=== PATIENT | male | born 1995 | race Two or more races ===

== ENCOUNTER 2024-10-13 07:16 | Emergency (ER) | payer MEDICAID, OTHER ==
[~2024-10-13] VITALS: Ht 175.3 cm; Wt 102.0 kg
--- NOTE | 2024-10-13 07:25 | ED.PDOC ---
History of Present Illness HPI Comments 29-year-old male history of bipolar schizophrenia hypotension was brought by paramedics because he is hearing voices for the past two weeks. Voices are telling him to harm himself. He has not taken his medication in the past year. He has been feeling like this for the past two weeks. Blood pressure on arrival was 154/96 with saturation of 100%. Time Seen by MD: 07:21 Reviewed Notes: Nurses Notes, Medications, Allergies Allergies: Coded Allergies: NO KNOWN ALLERGIES (Unverified , 10/13/24) Information Source: Patient, Emergency Med Personnel Mode of Arrival: EMS Severity: Moderate Timing: Days Duration: Since onset Past Medical History PAST MEDICAL HISTORY: Schizophrenia Surgical History: Denies all surgeries Social History Smoker: Cigarettes Alcohol: Denies ETOH Use Drugs: Denies Drug Use Constitutional: denies: chills, diaphoresis, fatigue, fever, malaise, sweats, weakness, others EENTM: denies: blurred vision, double vision, ear bleeding, ear discharge, ear drainage, ear pain, ear ringing, eye pain, eye redness, hearing loss, mouth pain, mouth swelling, nasal discharge, nose bleeding, nose congestion, nose pain, photophobia, tearing, throat pain, throat swelling, voice changes, others Respiratory: denies: cough, hemoptysis, orthopnea, SOB at rest, shortness of breath, SOB with excertion, stridor, wheezing, others Cardiovascular: denies: chest pain, dizzy spells, diaphoresis, Dyspnea on exertion, edema, irregular heart beat, left arm pain, lightheadedness, palpitations, PND, syncope, others Gastrointestinal: denies: abdomen distended, abdominal pain, blood streaked bowels, constipated, diarrhea, dysphagia, difficulty swallowing, hematemesis, melena, nausea, poor appetite, poor fluid intake, rectal bleeding, rectal pain, vomiting, others Genitourinary: denies: burning, dysuria, flank pain, frequency, hematuria, incontinence, penile discharge, penile sore, pain, testicle pain, testicle swelling, urgency, others Neurological: denies: dizziness, fainting, headache, left sided numbness, left sided weakness, numbness, paresthesia, pre-existing deficit, right sided numbness, right sided weakness, seizure, speech problems, tingling, tremors, weakness, others Musculoskeletal: denies: back pain, gout, joint pain, joint swelling, muscle pain, muscle stiffness, neck pain, others Integumetry: denies: bruises, change in color, change in hair/nails, dryness, laceration, lesions, lumps, rash, wounds, others Allergic/Immunocompromised: denies: Difficulty Healing, Frequent Infections, Hives, Itching, others Hematologic/Lymphatic: denies: anemia, blood clots, easy bleeding, easy bruising, swollen glands, others Endocrine: denies: excessive hunger, excessive sweating, excessive thirst, excessive urination, flushing, intolerance to cold, intolerance to heat, unexplained weight gain, unexplained weight loss, others Psychiatric: reports: bipolar disorder, schizophrenia; denies: anxiety, depression, hopeless, panic disorder, sleepless, suicidal, others Physical Exam General Appearance: Moderate Distress HEENT: Normal ENT Inspection, Pharynx Normal, TMs Normal Neck: Full Range of Motion, Non-Tender, Normal, Normal Inspection Respiratory: Chest Non-Tender, Lungs Clear, No Accessory Muscle Use, No Respiratory Distress, Normal Breath Sounds Cardiovascular: No Edema, No JVD, No Murmur, No Gallop, Normal Peripheral Pulses, Regular Rate/Rhythm Breast Exam: Deferred Gastrointestinal: No Organomegaly, Non Tender, No Pulsatile Mass, Normal Bowel Sounds, Soft Genitalia: Deferred Pelvic: Deferred Rectal: Deferred Extremities: No calf tenderness, Normal capillary refill, Normal inspection, Normal range of motion, Non-tender, No pedal edema Musculoskeletal : Apperance: Normal Neurologic: Alert, make ready worker II-XII nml as Tested, No Motor Deficits, Normal Affect, Normal Mood, No Sensory Deficits Cerebellar Function: Normal Reflexes: Normal Skin: Dry, Normal Color, Warm Peripheral Pulses: 3+ Radial (R), 3+ Radial (L) Lymphatic: No Adenopathy Was a procedure done? Was a procedure done?: No Differential Dx Considerations may include: Anxiety Electrolyte imbalance X-Ray, Labs, Meds, VS Vital Signs Date Time Temp Pulse Resp B/P (MAP) Pulse Ox O2 Delivery O2 Flow Rate FiO2 10/13/24 07:56 98.0 74 16 158/90 (112) 100 98.0 10/13/24 07:56 74 16 100 Room Air* 0 21 10/13/24 07:55 158/90 10/13/24 07:26 98.0 74 16 154/96 (115) 100 98.0 Lab Test 10/13/24 07:40 Range/Units Urine Opiates Screen Neg NEGATIVE Urine Fentanyl Screen Neg NEGATIVE Urine Barbiturates Screen Neg NEGATIVE Urine Phencyclidine Screen Neg NEGATIVE Urine Amphetamines Screen Neg NEGATIVE Urine Benzodiazepines Screen Neg NEGATIVE Urine Cocaine Screen Neg NEGATIVE Urine Cannabinoids Screen Neg NEGATIVE Current Medications Medications (Trade) Dose Ordered Sig/Maksim Route Start Time Stop Time Status Last Admin Clonidine HCl (Catapres Tablet) 0.1 mg ONCE ONCE PO 10/13/24 08:00 10/13/24 08:01 DC 10/13/24 07:55 Patient alert. Complaining of hearing voices. Voices telling him to harm himself. Vitals stable. Has not been taking his psychiatric medication for more than a year. Counseled patient on effects of smoking cigarettes for 15 minutes. Reviewed his previous visit. Blood pressure elevated. Was given clonidine. Medically cleared. Psychiatric evaluation. Time of 1ST Reevaluation: 07:23 Reevaluation 1ST: Improved Patient Education/Counseling: Diagnosis, Treatment, Prognosis, Need For Follow Up Family Education/Counseling: No Family Present Departure 1 Departure Time of Disposition: 07:24 Impression: Primary Impression: Suicidal ideation Additional Impression: Hypertension Qualified Codes: I10 - Essential (primary) hypertension Disposition: 30 STILL A PATIENT Condition: Good Critical Care Note Critical Care Time?: No Stability Stability form required: No Heart Score Heart Score: Heart Score Response (Comments) Value History N/A 0 EKG N/A 0 Age N/A 0 Risk Factors N/A 0 Troponin N/A 0 Total 0 GILBERT PERAZA MD October 13, 2024 07:25
[2024-10-13] MEDS ORDERED: cloNIDine HCL 0.1 MG TAB PO ONE (07:30)
[2024-10-13] MEDS: cloNIDine HCL 0.1 MG TAB PO ONE (07:55)
[2024-10-13 07:56] VITALS: PULSE 74; RESP 16; O2SAT 100
[2024-10-13 08:09] LABS: Amphetamine Screen, Urine Neg (NEGATIVE); Barbiturate Scree,Urine Neg (NEGATIVE); Benzodiazephine Screen, Urine Neg (NEGATIVE); Cannabinoid Screen, Urine Neg (NEGATIVE); Cocaine Screen, Urine Neg (NEGATIVE); Opiate Scree,Urine Neg (NEGATIVE); Phencyclidine Screen, Urine Neg (NEGATIVE)
--- NOTE | 2024-10-13 14:22 | DVHINCON2 ---
Date of Service if different f: October 13, 2024 Consultation ([facility]) Labs Laboratory Tests Test 10/13/24 07:40 Urine Opiates Screen Neg (NEGATIVE) Urine Fentanyl Screen Neg (NEGATIVE) Urine Barbiturates Screen Neg (NEGATIVE) Urine Phencyclidine Screen Neg (NEGATIVE) Urine Amphetamines Screen Neg (NEGATIVE) Urine Benzodiazepines Screen Neg (NEGATIVE) Urine Cocaine Screen Neg (NEGATIVE) Urine Cannabinoids Screen Neg (NEGATIVE) Appetite: Good Appearance: Stated age, Groomed Psychomotor activity: WNL Behavioral: Cooperative Eye contact: Appropriate Speech: WNL Affect: Mood Congruent Mood: Anxious Thought processes: Linear/Goal-directed Thought content: Hallucinations (auditory) Suicidal ideations: Absent Homicidal ideations: Absent Orientation: Person, Place, Time Memory intact: Recent Intellect: Average Abstractability: WNL Concentration: Adequate Attention: Adequate Judgement: WNL Insight: Fair Vitals Vital Signs Date Time Temp Pulse Resp B/P (MAP) Pulse Ox O2 Delivery O2 Flow Rate FiO2 10/13/24 10:29 137/76 10/13/24 10:29 98.3 85 17 100 98.3 10/13/24 07:56 Room Air* 0 21 Diagnosis: unspecified psychosis Plan : Patient reporting command auditory hallucinations for the past 2 weeks. Toxicology is negative He is requesting psych hospital transfer Please transfer to psychiatric facility voluntarily for stabilization and treatment. If pt requests to leave or no available beds, please re-consult Recommend to restart Zyprexa 10mg po daily. History of Present Illness Reason for Consult : command auditory auditory hallucinations HPI : This is a 29-year-old male reporting prior diagnoses of bipolar and schizophrenia, presents to ED reporting command auditory hallucinations. Patient is evaluated using telepsychiatry platform. He reports feeling anxious and command hallucinations for the past 2 weeks. 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 Voices began after methamphetamine use for years. He reports voices are worst the last 2 weeks. When asked content of voices, he did not want to repeat them but says they want me to harm myself. He denies any additional stressors. He reports poor sleep. Appetite is normal. He denies suicidal/homicidal ideation. He denies feeling depressed, hopeless or anhedonia. Past Psychiatric History : He reports 2 prior psych admissions last one year ago. he denies hx of suicide attempts. He was prescribed olanzapine (unsire of dose) but stopped use 1 year ago and would like to restart. he denies current outpatient services. Past Medical History : He denies Social History : He lives with parents. He reports being single, no children, not employed. he denies any known family history. He reports prior use of meth and nicotine and sober 3 weeks. he denies any recent use of alcohol or other substances. His toxicology is negative. MICHAELA HARRINGTON DNP October 13, 2024 14:22
[2024-10-13 19:30] VITALS: PULSE 89; RESP 16; O2SAT 97
[2024-10-13] MEDS: OLANZapine 5 MG TAB PO ONE (19:58)
[2024-10-14] MEDS: OLANZapine 5 MG TAB PO SCH (10:52)
[2024-10-14 14:00] VITALS: PULSE 63; RESP 16; O2SAT 98
[2024-10-14] MEDS: LORazepam 0.5 MG TAB PO ONE (16:02)
[2024-10-15 07:50] VITALS: PULSE 60; RESP 14; O2SAT 99
[2024-10-15 20:30] VITALS: PULSE 72; RESP 16; O2SAT 95
[2024-10-15] MEDS: traZODone HCL 50 MG TAB PO ONE (23:19)
[2024-10-16] MEDS: OLANZapine 5 MG TAB ONE (18:45)
[2024-10-16 19:30] VITALS: PULSE 64; RESP 14; O2SAT 97
[2024-10-17 07:50] VITALS: PULSE 64; RESP 16; O2SAT 99
[2024-10-17 11:58] VITALS: BP 133/98; PULSE 64; RESP 16; TEMP 98.3; O2SAT 100
== END 2024-10-17 12:20 | disposition short-term general hospital (02) ==
LOC: ER 07:16 → EDBD 07:16 → ER 10-17 12:20
DX: R45.851 Suicidal ideations (principal); I10 Essential (primary) hypertension; F20.9 Schizophrenia, unspecified; F31.9 Bipolar disorder, unspecified; F17.210 Nicotine dependence, cigarettes, uncomplicated
CPT/HCPCS: 80307; 99407